=== PATIENT | female | born 1990 | race African-American/Black ===

== ENCOUNTER 2023-10-04 13:39 | Emergency (ER) | payer BC ==
[~2023-10-04] VITALS: Ht 175.3 cm; Wt 69.4 kg
[2023-10-04] MEDS ORDERED: AMOX-430 PO (14:12)
[2023-10-04] MEDS ORDERED: TDAP [DIPH/PERTUSSIS/TET] 0.5 ML VIAL IM ONE ×2 (14:19→14:30)
[2023-10-04] MEDS ORDERED: AMOX/CLAVULANATE 875 MG TABLET ONE (14:19)
[2023-10-04] MEDS ORDERED: AMOX/CLAVULANATE 875 MG TABLET PO ONE (14:30)
[2023-10-04 14:35] VITALS: BP 122/77; TEMP 98.1; O2SAT 100
== END 2023-10-04 14:36 | disposition home or self-care (01) ==
LOC: ER 13:46
DX: S61.253A Open bite of left middle finger without damage to nail, initial encounter (principal); W53.21XA Bitten by squirrel, initial encounter; Y93.89 Activity, other specified; Y92.89 Other specified places as the place of occurrence of the external cause; Y99.8 Other external cause status
CPT/HCPCS: 90715